=== PATIENT | male | born 1980 | race Two or more races ===

== ENCOUNTER 2019-03-01 12:11 | Emergency (ER) | payer SELFPAY ==
[~2019-03-01] VITALS: Ht 170.2 cm; Wt 77.0 kg
[2019-03-01 12:25] VITALS: BP 126/76
== END 2019-03-01 16:34 | disposition left against medical advice (07) ==
LOC: ER 12:11
DX: L02.414 Cutaneous abscess of left upper limb (principal); Z53.21 Procedure and treatment not carried out due to patient leaving prior to being seen by health care provider

== ENCOUNTER 2019-03-02 00:28 | Emergency (ER) | payer SELFPAY ==
[~2019-03-02] VITALS: Ht 177.8 cm; Wt 79.0 kg
[2019-03-02 00:43] VITALS: BP 134/87
[2019-03-02] MEDS ORDERED: BACITRACIN ZINC OINT UDPKT TOP ONE (01:45)
[2019-03-02] MEDS ORDERED: LIDOCAINE HCL/PF 1% 10 MG/ML 5ML VIAL IJ ONE (01:45)
== END 2019-03-02 02:04 | disposition home or self-care (01) ==
LOC: ER 00:28
DX: L02.414 Cutaneous abscess of left upper limb (principal)
CPT/HCPCS: 10060; 99283; J3490

== ENCOUNTER 2019-03-04 20:38 | Emergency (ER) | payer SELFPAY ==
[~2019-03-04] VITALS: Ht 175.3 cm; Wt 85.0 kg
[2019-03-04 22:59] VITALS: BP 121/81
== END 2019-03-04 23:01 | disposition home or self-care (01) ==
LOC: ER 20:38
DX: M79.89 Other specified soft tissue disorders (principal); Z48.01 Encounter for change or removal of surgical wound dressing
CPT/HCPCS: 99281; Z7610